=== PATIENT | male | born 1975 | race African-American/Black ===

== ENCOUNTER 2020-05-16 19:13 | Emergency (ER) | payer MEDICAID ==
[~2020-05-16] VITALS: Ht 185.4 cm; Wt 102.0 kg
[2020-05-16] MEDS ORDERED: ACETAMINOPHEN 500 MG TABLET PO ONE (19:45)
== END 2020-05-16 21:21 | disposition home or self-care (01) ==
LOC: EMS 19:14
DX: F19.10 Other psychoactive substance abuse, uncomplicated (principal); R45.851 Suicidal ideations; F17.210 Nicotine dependence, cigarettes, uncomplicated
CPT/HCPCS: Z7502

== ENCOUNTER 2021-06-13 10:04 | Inpatient (IN) | payer MEDICAID ==
[~2021-06-13] VITALS: Ht 185.4 cm; Wt 98.1 kg
[2021-06-13 10:44] LABS: BASOPHILS % (AUTO) 0.3 % (0.0-2.0); EOSINOPHILS % (AUTO) 3.8 % (1.0-6.0); HEMATOCRIT 38.1 % (41-53); HEMOGLOBIN 12.7 g/dL (13.5-17.5); LYMPHOCYTES % (AUTO) 17.4 % (22.0-44.0); MEAN CORPUSCULAR HEMOGLOBIN 28.6 pg (26.0-34.0); MEAN CORPUSCULAR HGB CONC 33.4 G/dL (31.0-37.0); MEAN CORPUSCULAR VOLUME 86 fL (80-100); MONOCYTES # (AUTO) 0.5 K/uL (0.1-1.0); MONOCYTES % (AUTO) 8.9 % (2.0-9.0); NEUTROPHILS % (AUTO) 69.6 % (40.0-70.0); PLATELET COUNT (AUTO) 161 K/uL (150-450); RED BLOOD CELL COUNT(AUTO) 4.44 MIL/uL (4.50-5.90); RED CELL DISTRIBUTION WIDTH 13.6 % (11.5-14.5)
[2021-06-13 10:59] LABS: ALANINE AMINOTRANSFERASE 22 U/L (12-78); ALBUMIN 4.2 g/dL (3.4-5.0); ALKALINE PHOSPHATASE 74 U/L (46-116); ANION GAP 9 mmol/L (8-16); ASPARTATE AMINOTRANSFERASE 30 U/L (15-37); BILIRUBIN,TOTAL 0.5 mg/dL (0.1-1.0); CALCIUM, TOTAL 9.3 mg/dL (8.8-10.5); CARBON DIOXIDE 30 mmol/L (22-29); CHLORIDE 101 mmol/L (98-107); CREATININE 0.94 mg/dL (0.60-1.30); GLOMERULAR FILTR. RATE CALC > 60 mL/min (>60); GLUCOSE,RANDOM 153 mg/dL (70-110); SODIUM SERUM 140 mmol/L (136-145); TOTAL PROTEIN, SERUM 8.3 g/dL (6.4-8.2); UREA NITROGEN, BLOOD 10 mg/dL (7-18)
[2021-06-13 11:00] LABS: POTASSIUM 2.5 mmol/L (3.5-5.1)
[2021-06-13] MEDS ORDERED: POTASSIUM CHLORIDE 20 MEQ ER TABLET PO PRN (11:15)
[2021-06-13] MEDS: POTASSIUM CHL 10 MEQ/WATER 50 ML IV PRN ×4 (11:33→14:49)
[2021-06-13] MEDS ORDERED: LORazepam 2 MG/ML VIAL IM ONE (17:45)
[2021-06-13] MEDS ORDERED: HALOPERIDOL LACTATE 5 MG/ML VIAL IM ONE (17:45)
[2021-06-13] MEDS ORDERED: DiphenhydrAMINE HCL 50 MG/ML VIAL IM ONE (17:45)
[2021-06-13 17:47] LABS: COVID AG,FIA SOURCE NASOPHARYNGEAL
[2021-06-13 18:06] LABS: AMPHET/METH SCREEN,URINE NEGATIVE (NEGATIVE); BARBITURATE SCREEN, URINE NEGATIVE (NEGATIVE); BENZODIAZEPINES SCREEN,URINE POSITIVE (NEGATIVE); CANNABINOID SCREEN,URINE POSITIVE (NEGATIVE); COCAINE SCREEN,URINE NEGATIVE (NEGATIVE); METHADONE SCREEN, URINE NEGATIVE (NEGATIVE); OPIATE SCREEN,URINE NEGATIVE (NEGATIVE); PHENCYCLIDINE SCREEN,URINE POSITIVE (NEGATIVE)
[2021-06-13] MEDS ORDERED: ZOLPIDEM TARTRATE 10 MG TABLET PO PRN (18:15)
[2021-06-13] MEDS ORDERED: POTASSIUM CHLORIDE 20 MEQ ER TABLET PO ONE ×2 (20:00→21:30)
[2021-06-13 22:28] VITALS: BP 156/95
[2021-06-14] MEDS ORDERED: PETROLATUM,WHITE 28 GM JELLY TP PRN (09:45)
[2021-06-14] MEDS ORDERED: IBUPROFEN 400 MG TABLET PO PRN (09:45)
[2021-06-14] MEDS ORDERED: DOCUSATE SODIUM 100 MG CAPSULE PO PRN (09:45)
[2021-06-14] MEDS ORDERED: ALBUTEROL SULFATE HFA 90 MCG/PUFF 8 GM INHALER IH PRN (09:45)
[2021-06-14] MEDS ORDERED: GuaiFENesin/D-METHORPHAN [SUGAR-FREE] 200-20MG/10 ML SYRUP UDCUP PO PRN (09:45)
[2021-06-14] MEDS ORDERED: LOPERAMIDE HCL 2 MG CAPSULE PO PRN (09:45)
[2021-06-14] MEDS ORDERED: NICOTINE 14 MG/24 HOUR PATCH TD PRN (09:45)
[2021-06-14] MEDS ORDERED: CloNIDine HCL 0.1 MG TABLET PO PRN (09:45)
[2021-06-14] MEDS ORDERED: ONDANSETRON HCL 4 MG TABLET PO PRN (09:45)
[2021-06-14] MEDS ORDERED: ACETAMINOPHEN 325 MG TABLET PO PRN (09:45)
[2021-06-14] MEDS ORDERED: MAG HYDROX/AL HYDROX/SIMETH ES 30 ML SUSPENSION UDCUP PO PRN (09:45)
[2021-06-14] MEDS ORDERED: MAGNESIUM HYDROXIDE SUSPENSION 30 ML UDCUP PO PRN (09:45)
[2021-06-14] MEDS: RisperiDONE 2 MG TABLET PO SCH ×2 (14:13→16:10)
[2021-06-14] MEDS: DIVALPROEX SODIUM 500 MG DR TABLET PO SCH ×2 (14:13→16:10)
[2021-06-14] MEDS ORDERED: POTASSIUM CHLORIDE 20 MEQ ER TABLET PO ONE (14:30)
[2021-06-14 16:11] VITALS: BP 124/80
[2021-06-14] MEDS: LORazepam 2 MG TABLET PO PRN (16:11)
[2021-06-14] MEDS: HALOPERIDOL 5 MG TABLET PO PRN (16:11)
[2021-06-15 08:00] VITALS: BP 142/98
[2021-06-15] MEDS: LORazepam 2 MG TABLET PO PRN ×2 (08:01→15:47)
[2021-06-15] MEDS: DIVALPROEX SODIUM 500 MG DR TABLET PO SCH ×2 (08:01→16:23)
[2021-06-15] MEDS: RisperiDONE 2 MG TABLET PO SCH ×2 (08:01→16:23)
[2021-06-15] MEDS: HALOPERIDOL 5 MG TABLET PO PRN (08:02)
[2021-06-15 16:34] VITALS: BP 144/94
[2021-06-16 08:00] VITALS: BP 129/93
[2021-06-16] MEDS: RisperiDONE 2 MG TABLET PO SCH (08:12)
[2021-06-16] MEDS: DIVALPROEX SODIUM 500 MG DR TABLET PO SCH (08:12)
[2021-06-16] MEDS ORDERED: DIVA-112 PO (10:22)
[2021-06-16] MEDS ORDERED: RISP2TAB45 PO (10:22)
== END 2021-06-16 10:30 | disposition home or self-care (01) | DRG 750 ==
LOC: EMS 10:04 → 3EC 22:20
PROVIDERS: ADMIT Psychiatry & Neurology Child & Adolescent Psychiatry; ATTEND Psychiatry & Neurology Child & Adolescent Psychiatry
DX: F20.0 Paranoid schizophrenia (principal); Z59.00 Homelessness unspecified; D64.9 Anemia, unspecified; E87.6 Hypokalemia; F12.10 Cannabis abuse, uncomplicated; Z20.822 Contact with and (suspected) exposure to COVID-19; F17.200 Nicotine dependence, unspecified, uncomplicated; Z71.6 Tobacco abuse counseling; Z78.1 Physical restraint status; Z79.899 Other long term (current) drug therapy
CPT/HCPCS: 80053; 84132; 85025; 93005; 99291; G0480; J1200; J1630; J2060; J3480; J3535

== ENCOUNTER 2024-11-23 16:10 | Emergency (ER) | payer MEDICAID, OTHER ==
[~2024-11-23] VITALS: Ht 188 cm; Wt 95.5 kg
[~2024-11-23 16:10] MED LIST: DIVA-112 PO; RISP2TAB45 PO
[2024-11-23 16:14] VITALS: TEMP 98.6
[2024-11-23] MEDS: KETOROLAC TROMETHAMINE 30 MG/ML VIAL IM ONE (17:51)
[2024-11-23] MEDS: BACLOFEN 10 MG TABLET PO ONE (17:51)
[2024-11-23] MEDS: LIDOCAINE 5% TRANSDERMAL PATCH TD ONE (17:52)
[2024-11-23 18:30] VITALS: BP 134/72; PULSE 62; RESP 18; O2SAT 99
[2024-11-23] MEDS ORDERED: BACL10TA PO (18:53)
[2024-11-23] MEDS ORDERED: IBUP-1492 PO (18:53)
[2024-11-23] MEDS ORDERED: LIDO700A15 TP (18:55)
== END 2024-11-23 19:10 | disposition home or self-care (01) ==
LOC: EMS 16:12
DX: M54.50 Low back pain, unspecified (principal); F17.210 Nicotine dependence, cigarettes, uncomplicated
CPT/HCPCS: 99283; 96372; J1885

== ENCOUNTER 2025-07-30 07:12 | Emergency (ER) | payer OTHER ==
[~2025-07-30] VITALS: Ht 185.4 cm; Wt 89.5 kg
[~2025-07-30 07:12] MED LIST changes: +BACL10TA PO; -DIVA-112 PO; +IBUP-1492 PO; +LIDO-57 TP; -RISP2TAB45 PO
[2025-07-30 07:19] VITALS: TEMP 97.9
[2025-07-30] MEDS: ACETAMINOPHEN 500 MG TABLET PO ONE (07:43)
[2025-07-30] MEDS: IBUPROFEN 800 MG TABLET PO ONE (07:43)
[2025-07-30] MEDS ORDERED: ACET-66 PO (08:53)
[2025-07-30] MEDS ORDERED: IBUP-1554 PO (08:53)
[2025-07-30] MEDS ORDERED: METH-659 PO (08:53)
[2025-07-30 09:23] VITALS: BP 112/76; PULSE 68; RESP 16; O2SAT 100
== END 2025-07-30 09:24 | disposition home or self-care (01) ==
LOC: EMS 07:13
DX: S39.012A Strain of muscle, fascia and tendon of lower back, initial encounter (principal); F17.210 Nicotine dependence, cigarettes, uncomplicated; X58.XXXA Exposure to other specified factors, initial encounter; Y93.89 Activity, other specified; Y92.89 Other specified places as the place of occurrence of the external cause; Y99.8 Other external cause status
CPT/HCPCS: 99284; Z7502; Z7610

== ENCOUNTER 2025-07-31 02:32 | Emergency (ER) | payer OTHER ==
[~2025-07-31] VITALS: Ht 185.4 cm; Wt 90.0 kg
[~2025-07-31 02:32] MED LIST changes: +ACET-66 PO; +IBUP-1554 PO; +METH-659 PO
[2025-07-31 03:10] VITALS: TEMP 98.4
[2025-07-31] MEDS: IBUPROFEN 400 MG TABLET PO ONE (03:31)
[2025-07-31] MEDS: ACETAMINOPHEN 500 MG TABLET PO ONE (03:31)
[2025-07-31 03:37] VITALS: BP 133/76; PULSE 84; RESP 19; O2SAT 100
== END 2025-07-31 05:55 | disposition home or self-care (01) ==
LOC: EMS 02:32
DX: S39.012A Strain of muscle, fascia and tendon of lower back, initial encounter (principal); F12.90 Cannabis use, unspecified, uncomplicated; F17.210 Nicotine dependence, cigarettes, uncomplicated; G89.29 Other chronic pain; X58.XXXA Exposure to other specified factors, initial encounter; Y93.89 Activity, other specified; Y92.89 Other specified places as the place of occurrence of the external cause; Y99.8 Other external cause status
CPT/HCPCS: 99283

== ENCOUNTER 2025-08-13 01:44 | Emergency (ER) | payer OTHER ==
[~2025-08-13] VITALS: Ht 188 cm; Wt 89.1 kg
[~2025-08-13 01:44] MED LIST changes: -BACL10TA PO; -IBUP-1492 PO; -LIDO-57 TP
[2025-08-13 04:16] VITALS: TEMP 97.905272
[2025-08-13] MEDS: DIMETHICONE/COLLOIDAL OATMEAL 227 GM LOTION TP ONE (05:07)
[2025-08-13 05:10] VITALS: BP 139/74; PULSE 96; RESP 16; O2SAT 100
== END 2025-08-13 05:14 | disposition home or self-care (01) ==
LOC: EMS 01:44
DX: L25.9 Unspecified contact dermatitis, unspecified cause (principal); F12.90 Cannabis use, unspecified, uncomplicated; F17.210 Nicotine dependence, cigarettes, uncomplicated; Z79.899 Other long term (current) drug therapy
CPT/HCPCS: 99282; Z7502; Z7610